=== PATIENT | male | born 1965 | race Two or more races ===

== ENCOUNTER 2020-09-06 18:35 | Emergency (ER) | payer SELFPAY ==
[~2020-09-06] VITALS: Ht 167.6 cm; Wt 76.0 kg
[2020-09-06] MEDS ORDERED: ONDANSETRON PF 4 MG/2 ML VIAL. IVP ONE (19:00)
[2020-09-06] MEDS ORDERED: MORPHINE SULFATE 10 MG/ML VIAL. IV ONE (19:00)
--- NOTE | 2020-09-06 19:26 | PHYS DOC ---
General Adult EDM: Chief Complaint: SHOULDER INJURY HPI: HPI: Patient is a 54 year old male patient who presents to the ED today complaining of moderate pain to the right shoulder that began after he fell on his right shoulder from a 3 foot ladder. Patient denies any loss of consciousness. (EMMETT DENISE APRN) Review of Systems: Review of Systems: Constitutional: Denies fever or chills. [] GI: Denies abdominal pain, nausea, vomiting, bloody stools or diarrhea. [] Musculoskeletal: Reports right shoulder pain, denies back pain, neck pain. Integument: Denies rash. [] Neurologic: Denies headache, focal weakness or sensory changes. [] Psychiatric: Denies depression or anxiety. [] (EMMETT DENISE APRN) Heart Score: Risk Factors: Risk Factors: DM, Current or recent (<one month) smoker, HTN, HLP, family history of CAD, obesity. Risk Scores: Score 0 - 3: 2.5% MACE over next 6 weeks - Discharge Home Score 4 - 6: 20.3% MACE over next 6 weeks - Admit for Clinical Observation Score 7 - 10: 72.7% MACE over next 6 weeks - Early Invasive Strategies (EMMETT DENISE APRN) Current Medications: Current Medications Medications (Trade) Dose Ordered Sig/Dante Start Time Stop Time Status Last Admin Dose Admin Morphine Sulfate (Morphine Sulfate) 5 mg 1X ONCE 09/06/20 19:00 09/06/20 19:11 DC 09/06/20 19:20 5 MG Ondansetron HCl (Zofran) 4 mg 1X ONCE 09/06/20 19:00 09/06/20 19:11 DC 09/06/20 19:19 4 MG (EMMETT DENISE APRN) Allergies: Allergies: Allergies Coded Allergies Type Severity Reaction Last Updated Verified No Known Drug Allergies 09/06/20 No (MEMETT DENISE APRN) Physical Exam: PE: Constitutional: Well developed, well nourished, no acute distress, non-toxic appearance. [] Skin: Warm, dry, no erythema, no rash. [] Back: No tenderness, no CVA tenderness. [] Extremities: Right shoulder appears obviously dislocated. Limited range of motion to the right upper extremity. Full range of motion to the right fingers, adequate radial, medial, ulnar sensation to the right upper extremity. Cap refill less than 2 seconds to right fingers. Neurologic: Alert and oriented X 3, normal motor function, normal sensory function, no focal deficits noted. [] Psychologic: Affect normal, judgement normal, mood normal. [] (EMMETT DENISE APRN) PE: Constitutional: Well developed, well nourished, no acute distress, non-toxic appearance. HENT: Normocephalic, atraumatic, Eyes: EOMI, conjunctiva normal, no discharge. Neck: Normal range of motion, supple, Cardiovascular: S1/2 present, regular rhythm Lungs & Thorax: Speaking in full sentences, bilateral equal chest rise, no tachypnea or increased work of breathing Abdomen: soft, no tenderness, Skin: Warm, dry, no erythema, no rash. [] Back: No tenderness, no CVA tenderness. [] Extremities: No tenderness, no cyanosis, no edema Neurologic: Alert and oriented X 3, normal motor function, normal sensory function, no focal deficits noted. [] Psychologic: Affect normal, judgement normal, mood normal. [] (JOHANNY ALEXIS DO) EKG: EKG: [] (EMMETT DENISE APRN) Radiology/Procedures: Radiology/Procedures: [] (EMMETT DENISE APRN) Radiology/Procedures: IMAGING REPORT Signed PATIENT: ADOLFO LINDER ACCOUNT: [id number] : 1965 LOCATION: ER AGE: 54 SEX: M EXAM STATUS: REG ER ORD. PHYSICIAN: EMMETT DENISE APRN REASON: right shoulder pain after fall PROCEDURE: SHOULDER 2+V RIGHT INDICATION: Reason: right shoulder pain after fall / Spl. Instructions: / History: COMPARISON: None. IMPRESSION: Right shoulder: 3 views obtained. Anterior inferior right shoulder dislocation is identified. Suspected indentation of the right humeral head which could be from a Hill-Sachs impaction injury. Electronically signed by: Marta Nielson MD (09/06/2020 7:41 PM) [id number] DICTATED and SIGNED BY: MARTA NIELSON MD DATE: 09/06/20 [id number] 0 IMAGING REPORT Signed PATIENT: ADOLFO LINDER ACCOUNT: [id number] : 1965 LOCATION: ER AGE: 54 SEX: M EXAM STATUS: REG ER ORD. PHYSICIAN: JOHANNY ALEXIS DO REASON: s/p reduction PROCEDURE: SHOULDER 2+V RIGHT INDICATION: Reason: s/p reduction / Spl. Instructions: / History: COMPARISON: Earlier same day IMPRESSION: Right shoulder: 2 views obtained. Interval improvement in alignment status post reduction of dislocation. Mild indentation of the right humeral head which can be seen with Hill-Sachs impaction injury Electronically signed by: Marta Nielson MD (09/06/2020 9:12 PM) [id number] DICTATED and SIGNED BY: MARTA NIELSON MD DATE: 09/06/20 [id number] 0 Indication: Right anterior-inferior shoulder dislocation Consent: Consent was obtained. Procedure: The pre-reduction exam showed distal perfusion and neurologic function to be normal.. The patient was placed in the appropriate position. Anesthesia/pain control was performed with Versed and ketamine. Reduction of the right shoulder was performed by traction, countertraction, minimal traction required for reduction. Post reduction films were obtained and revealed satisfactory reduction. A post-reduction exam revealed distal perfusion and neurologic function to be normal. The affected area was immobilized with right shoulder immobilizer. The patient tolerated the procedure well. Complications: No postprocedural complications, patient had Hill-Sachs impaction injury prior to reduction. Patient post procedure with equal radial pulses and normal axillary nerve sensation over deltoid muscle. (JOHANNY ALEXIS DO) Course & Med Decision Making: Course & Med Decision Making Pertinent Labs and Imaging studies reviewed. (See chart for details) This is a 54-year-old male patient presenting to the ED today with right shoulder pain after falling off a 3 foot ladder. 0 right shoulder is dislocated on Xray. Spoke with Dr. Alexis care transfered to her. (EMMETT DENISE APRN) Course & Med Decision Making Patient initially seen by my midlevel. Patient is Faroese-speaking but denies any past medical history, presents to the ED with right shoulder pain status post fall off a 3 foot ladder at work around 5 PM, just prior to arrival. No head injury or loss of consciousness, no midline neck pain. Takes no prescribed medications. Has no known drug allergies. Has never injured the shoulder. They are Faroese-speaking and patient [id number] is assisting with translating-due to patient being [id number] signed consent forms for right shoulder reduction and procedural sedation. Pt with no midline neck pain, decreased shoulder sensation, neurologic deficits or skin color changes. Right anterior shoulder reduced easily with minimal sedation, 2 mg of Versed and 1 make per cake of ketamine (75mg). Afterwards patient was given stronger analgesia, suspect worsening pain from Hill-Sachs lesion prior to reduction. Patient was placed in a shoulder sling prescribed analgesia-no drinking alcohol or driving with this medication. Will discharge home with strict ED return precautions were given for neurologic deficits including axillary nerve injury, recurrent dislocation or repeat trauma, neurovascular injury or deficits or severe pain. Encouraged urgent outpatient follow-up with PMD and orthopedic surgery as an outpatient. Life-threatening processes were considered but are low suspicion at this time, given history, physical exam and ED workup. Pt was educated on all prescription medications and adverse effects. All patient's questions were answered and pt was stable at time of discharge. Life/limb-threatening differential includes but is not limited to, trauma (fracture, dislocation, laceration, compartment syndrome, tendon or ligament injury), neurovascular injury or deficit, infection (osteomyelitis, abscess, c ellulitis, septic arthritis, necrotizing fasciitis), deep vein thrombosis, renal/cardiac/liver disease, medication adverse effect, lymphedema/anasarca, vascular insufficiency or malignancy, I spoken with the patient and her caregivers. I explained the patient's condition, diagnoses and treatment plan based on the information available to me at this time. I have answered the patient and her caregiver's questions and addressed any concerns. The patient and her caregivers have a good understanding of patient's diagnosis, condition and treatment plan as can be expected at this point. Vital signs have been stable. Patient's condition is stable and appropriate for discharge from the emergency department. Patient will pursue further outpatient evaluation with primary care physician or other designated or consulting physician as outlined in the discharge instructions. The patient and/or caregivers are agreeable to this plan of care and follow-up instructions have been explained in detail. The patient and/or caregivers have received these instructions in written form and have expressed an understanding of the discharge instructions. The patient and/or caregivers are aware that any significant change of condition or worsening of symptoms should prompt immediate return to this or the closest emergency department or call to 911. (JOHANNY ALEXIS DO) Isabella Disclaimer: Isabella Disclaimer: This electronic medical record was generated, in whole or in part, using a voice recognition dictation system. (EMMETT DENISE APRN) Departure Departure Impression: Primary Impression: Closed dislocation of right shoulder Additional Impression: Hill-Sachs fracture of right humerus Disposition: 01 DC HOME SELF CARE/HOMELESS Condition: STABLE Referrals: AURE MORGAN MD FOLLOW UP WITH FAMILY MEDICINE: Family Medicine Address: [address] [place] [address] Patient Instructions: Sedation, Moderate, Adult, Shoulder Dislocation, Shoulder Immobilizer Additional Instructions: FOLLOW UP WITH ORTHOPEDICS: within 1 week Orthopaedic Sports Medicine Orthopaedic Surgery [facility] Address: [address] [place] [address] EMERGENCY DEPARTMENT GENERAL DISCHARGE INSTRUCTIONS Thank you for coming to [facility] Emergency Department (ED) today and trusting us with you care. We trust that you had a positive experience in our Emergency Department. If you wish to speak to the department management, you may call the Director at [phone]. YOUR FOLLOW UP INSTRUCTIONS ARE FOLLOWS: 1. Do you have a private Doctor? If you do not have a private doctor, please ask for a resource list of physicians or clinics that may be able to assist you with follow up care. 2. The Emergency Physicain has interpreted your x-rays. The X-Ray specialist will also review them. If there is a change in the findings, you will be notified in 48 hours when at all possible. 3. A lab test or culture has been done, your results will be reviewed and you will be notified if you need a change in treatment. ADDITIONAL INSTRUCTIONS AND INFORMATION: 1. Your care today has been supervised by a physician who is specially trained in emergency care. Many problems require more than one evaluation for a complete diagnosis and treatment. We recommend that you schedule your follow up appointment as recommended to ensure complete treatment of you illness or injury. If you are unable to obtain follow up care and continue to have a problem, or if your condition worsens, we recommend that you return to the ED. 2. We are not able to safely determine your condition over the phone nor are we able to give sound medical advice over the phone. For these safety reasons, if you call for medical advice we will ask you to come to the ED for further evaluation. 3. If you have any questions regarding these discharge instructions please call the ED at [phone]. SAFETY INFORMATION: In the interest of safety, wellness, and injury prevention; we encourage you to wear your sealbelt, if you smoke; quite smoking, and we encourage family to use a protective helmet for bicycling and other sporting events that present an increased risk for head injury. IF YOUR SYMPTOMS WORSEN OR NEW SYMPTOMS DEVELOP, OR YOU HAVE CONCERNS ABOUT YOUR CONDITION; OR IF YOUR CONDITION WORSENS WHILE YOU ARE WAITING FOR YOUR FOLLOW UP APPOINT MENT; EITHER CONTACT YOUR PRIMARY CARE DOCTOR, THE PHYSICIAN WHOSE NAME AND NUMBER YOU WERE GIVEN, OR RETURN TO THE ED IMMEDIATELY. Scripts Docusate Sodium (COLACE) 100 Mg Capsule 1 CAP PO BID for 5 Days, #10 CAP 0 Refills Prov: JOHANNY ALEXIS DO 09/06/20 Ibuprofen (Ibuprofen) 600 Mg Tablet 600 MG PO QID for 4 Days, #16 TAB Prov: JOHANNY ALEXIS DO 09/06/20 Hydrocodone Bit/Acetaminophen (HYDROCODONE-APAP 5-325 ) 1 Tab Tablet 1 TAB PO PRN Q6HRS PRN for PAIN for 3 Days, #12 TAB 0 Refills Prov: JOHANNY ALEXIS DO 09/06/20 EMMETT DENISE APRN Sep 06, 2020 19:26 JOHANNY ALEXIS DO Sep 06, 2020 21:16
[2020-09-06] MEDS ORDERED: MIDAZOLAM HCL/PF 5 MG/5 ML VIAL. NS ONE (19:30)
[2020-09-06] MEDS ORDERED: IV NORMAL SALINE 1000ML BAG 1,000 ML IV ONE (19:30)
--- NOTE | 2020-09-06 19:43 | RAD ---
INDICATION: Reason: right shoulder pain after fall / Spl. Instructions: / History: COMPARISON: None. IMPRESSION: Right shoulder: 3 views obtained. Anterior inferior right shoulder dislocation is identified. Suspect ed indentation of the right humeral head which could be from a Hill-Sachs impaction injury. Electronically signed by: Mark Hickman MD (09/06/2020 7:41 PM) [id number]
[2020-09-06] MEDS ORDERED: KETAMINE HCL 500 MG/10 ML VIAL. IV ONE (19:45)
[2020-09-06 20:40] VITALS: BP 128/78
[2020-09-06] MEDS ORDERED: HYDROmorphone 2 MG/ML VIAL IVP ONE ×2 (21:00)
--- NOTE | 2020-09-06 21:14 | RAD ---
INDICATION: Reason: s/p reduction / Spl. Instructions: / History: COMPARISON: Earlier same day IMPRESSION: Right shoulder: 2 views obtained. Interval improvement in alignment status post reduction of dislocat ion. Mild indentation of the right humeral head which can be seen with Hill-Sachs impaction injury Electronically signed by: Mark Hickman MD (09/06/2020 9:12 PM) [id number]
[2020-09-06] MEDS ORDERED: HYDR-2761 PO (21:53)
[2020-09-06] MEDS ORDERED: DOCU-109 PO (21:53)
[2020-09-06] MEDS ORDERED: IBUP-985 PO (21:53)
[2020-09-06 22:30] VITALS: BP 133/78
== END 2020-09-06 22:47 | disposition home or self-care (01) ==
LOC: ER 18:35
DX: S43.004A Unspecified dislocation of right shoulder joint, initial encounter (principal); S42.291A Other displaced fracture of upper end of right humerus, initial encounter for closed fracture; W11.XXXA Fall on and from ladder, initial encounter; Y93.89 Activity, other specified; Y92.89 Other specified places as the place of occurrence of the external cause; Y99.8 Other external cause status
CPT/HCPCS: 23650; 73030; 96361; 96374; 96375; 99285; J1170; J2250; J2270; J2405; J3490; J7030; 96376